=== PATIENT | female | born 1990 | race Caucasian/White ===

== ENCOUNTER 2016-12-04 21:52 | Emergency (ER) | payer OTHER ==
[~2016-12-04] VITALS: Ht 154.9 cm; Wt 73.0 kg
[2016-12-04 21:54] VITALS: BP_SYST 129
--- NOTE | 2016-12-04 21:54 | NUR ---
Patient to ER bed 7 to gown for evaluation. Side rails up. Report given to Arlet NGUYEN.
--- NOTE | 2016-12-04 21:56 | NUR ---
Pt brought in by parents in stable condition. Pt c/o abd pain 7/10 w/ vaginal bleeding x6 days. Pt stated that she is 14 wks and this is her first . Pt stated that she has been feeling nauseous but not vomiting. -sob -chest pain. No acute distress noted at this time, will continue to monitor
--- NOTE | 2016-12-04 22:00 | NUR ---
ER at bedside examining patient.
[2016-12-04] MEDS ORDERED: NACL 0.9% 1,000 ML IV ONE (22:09)
[2016-12-04] MEDS ORDERED: ONDANSETRON HCL 4 MG/2 ML VIAL IVP ONE (22:15)
[2016-12-04 22:29] LABS: BILIRUBIN,URINE NEGATIVE (NEGATIVE); BLOOD, URINE 3+ (NEGATIVE); CLARITY/URINE CLOUDY (CLEAR); COLOR,URINE YELLOW (YELLOW); GLUCOSE,URINE NEGATIVE (NEGATIVE); KETONES,URINE TRACE (NEGATIVE); LEUKOCYTE ESTERASE ,URINE NEGATIVE (NEGATIVE); NITRITE, URINE NEGATIVE (NEGATIVE); PROTEIN URINE TRACE (NEGATIVE); UROBILINOGEN,URINE 0.2 (0.2-1.0)
[2016-12-04 22:34] LABS: BASOPHILS % (AUTO) 0.3 % (0.0-2.0); EOSINOPHILS # (AUTO) 0.3 K/uL (0.0-0.4); EOSINOPHILS % (AUTO) 2.7 % (0.0-4.0); HEMATOCRIT 37.5 % (36-48); HEMOGLOBIN 13.1 g/dL (12.0-16.0); LYMPHOCYTES # (AUTO) 2.6 K/uL (1.0-5.5); LYMPHOCYTES % (AUTO) 20.6 % (20.5-51.5); MEAN CORPUSCULAR HEMOGLOBIN 31 pg (27-31); MEAN CORPUSCULAR HGB CONC 35 % (32-36); MEAN CORPUSCULAR VOLUME 88 fL (79.0-98.0); MONOCYTES # (AUTO) 0.8 K/uL (0.0-1.0); NEUTROPHILS % (AUTO) 70.4 % (40.0-70.0); PLATELET COUNT (AUTO) 402 K/uL (130-430); RED BLOOD CELL COUNT(AUTO) 4.29 MIL/uL (4.2-6.2); RED CELL DISTRIBUTION WIDTH 11.5 % (9.0-15.0); WHITE BLOOD COUNT (AUTO) 12.7 K/uL (4.8-10.8)
[2016-12-04 22:44] LABS: PROTHROMBIN TIME 10.5 SECS (9.5-12.5)
[2016-12-04 22:48] LABS: BACTERIA,URINE FEW /HPF (None Seen); RBC,URINE >100 /HPF (0-3)
[2016-12-04 22:49] LABS: CALCIUM 8.8 mg/dL (8.4-11.0); CREATININE 0.91 mg/dL (0.55-1.30); POTASSIUM 3.4 mmol/L (3.5-5.1)
[2016-12-04 22:49] LABS: MUCUS,URINE None Seen /LPF (None Seen)
[2016-12-04 23:10] LABS: ALBUMIN 3.9 g/dL (3.4-4.8); TOTAL BILIRUBIN 0.3 mg/dL (0.0-1.0); TOTAL PROTEIN, SERUM 7.9 g/dL (6.4-8.3)
--- NOTE | 2016-12-04 23:21 | NUR ---
Dr. Parker at bedside updating patient and family
[2016-12-04 23:52] VITALS: BP_SYST 129
--- NOTE | 2016-12-04 23:52 | NUR ---
Patient given written and verbal discharge instructions and verbalizes understanding. ER MD Parker discussed with patient the results and treatment provided. Given copies of tests performed in ER. Patient in stable condition. ID arm band removed. IV catheter removed intact and dressing applied, no active bleeding. Rx of Ibuprofen 800 given. Patient educated on pain management and to follow up with PMD. Pain Scale 0/10. Opportunity for questions provided and answered.
== END 2016-12-04 23:52 | disposition home or self-care (01) ==
LOC: SED 21:52
DX: O03.4 Incomplete spontaneous abortion without complication (principal)
CPT/HCPCS: 36415; 76801; 80053; 81000; 81025; 84702; 85025; 85610; 96360; 99285; J7030; J2405